=== PATIENT | male | born 1990 | race African-American/Black ===

== ENCOUNTER 2017-11-23 10:51 | Emergency (ER) | payer OTHER ==
[~2017-11-23] VITALS: Ht 200.7 cm; Wt 95.3 kg
[2017-11-23] MEDS ORDERED: PROMETHAZINE/C118 ML PO (12:38)
[2017-11-23] MEDS ORDERED: PENICILLIN V P500 MG PO (12:38)
[2017-11-23 12:41] LABS: URINE BILIRUBIN NEGATIVE (Negative); URINE BLOOD NEGATIVE (Negative); URINE CLARITY CLEAR; URINE COLOR YELLOW; URINE GLUCOSE-RANDOM* NEGATIVE (Negative); URINE KETONES NEGATIVE (Negative); URINE LEUKOCYTES NEGATIVE (Negative); URINE NITRITE NEGATIVE (Negative); URINE PROTEIN (DIPSTICK) NEGATIVE (Negative); URINE UROBILINOGEN 0.2 E.U./dl (0.2-1.0)
== END 2017-11-23 12:59 | disposition home or self-care (01) ==
LOC: ER 10:51
PROVIDERS: Physician Assistant
DX: J02.0 Streptococcal pharyngitis (principal)

== ENCOUNTER 2018-11-10 10:45 | Emergency (ER) | payer OTHER ==
[~2018-11-10] VITALS: Ht 200.7 cm; Wt 94.3 kg
[~2018-11-10 10:45] MED LIST: PENICILLIN V P500 MG PO; PROMETHAZINE/C118 ML PO
[2018-11-10 10:57] VITALS: BP 116/74
[2018-11-10] MEDS ORDERED: VENTOLIN HFA 1818 GM INH (12:23)
[2018-11-10] MEDS ORDERED: TESSALON PERLE100 MG PO (12:23)
== END 2018-11-10 13:02 | disposition home or self-care (01) ==
LOC: ER 10:45
DX: J06.9 Acute upper respiratory infection, unspecified (principal); J98.01 Acute bronchospasm